=== PATIENT | female | born 1975 | race Caucasian/White ===

== ENCOUNTER 2021-06-13 07:20 | Emergency (ER) | payer OTHER ==
--- NOTE | 2021-06-13 08:03 | ER ---
Nurse's Notes [facility] Name: Malina Duarte Age: 46 yrs Sex: Female : 1975 Arrival Date: 06/13/2021 Time: 07:25 Bed 13 Private MD: Flaquito Jasso Diagnosis: Pain in unspecified knee;Pain in unspecified shoulder Presentation: 06/13 07:27 Chief complaint: Patient states: i have had some problems with my shoulder \T\ my knees tw2 for a while. i went to do my normal workout today and i just cried. pain is worse in the left knee. and right underneath my right collar bone. Coronavirus screen: At this time, the client does not indicate any symptoms associated with coronavirus-19. Ebola Screen: Patient denies travel to an Ebola-affected area in the 21 days before illness onset. Initial Sepsis Screen: Does the patient meet any 2 criteria? No. Patient's initial sepsis screen is negative. Does the patient have a suspected source of infection? No. Patient's initial sepsis screen is negative. Risk Assessment: Do you want to hurt yourself or someone else? Patient reports no desire to harm self or others. Onset of symptoms was June 13, 2021. 07:27 Method Of Arrival: Ambulatory tw2 07:27 Acuity: MONICA 4 tw2 Triage Assessment: 07:32 General: Appears in no apparent distress. obese, well groomed, Behavior is calm, tw2 cooperative, appropriate for age. Pain: Complains of pain in left knee and right shoulder area. Historical: - Allergies: 07:29 Codeine; tw2 07:29 Hydrocodone-Acetaminophen; tw2 - PMHx: 07:29 edema; tw2 - PSHx: 07:29 Appendectomy; section; uterus removed; oophorectomy; hernia; right foot sx; tw2 - Immunization history:: Adult Immunizations Client reports receiving the 2nd dose of the Covid vaccine. - Social history:: Smoking status: Reported history of juuling and/or vaping. Screenin:33 Abuse screen: Denies threats or abuse. Nutritional screening: No deficits noted. tw2 Tuberculosis screening: No symptoms or risk factors identified. Fall Risk None identified. Assessment: 07:43 Pain: Complains of pain in left knee Pain does not radiate. Pain currently is 7 out of aj2 10 on a pain scale. Quality of pain is described as dull, Pain began Is intermittent, Alleviated by nothing. Aggravated by increased activity, repositioning. Vital Signs: 07:27 BP 116 / 71; Pulse 62; Resp 17; Temp 98.2(TE); Pulse Ox 100% on R/A; Weight 83.91 kg tw2 (R); Height 5 ft. 2 in. (157.48 cm) (R); Pain 7/10; 07:39 BP 116 / 71; Pulse 62; Resp 18; Temp 98.2; Pulse Ox 100% ; aj2 07:27 Body Mass Index 33.84 (83.91 kg, 157.48 cm) tw2 ED Course: 07:25 Patient arrived in ED. mr 07:25 Flaquito Jasso MD is Private Physician. mr 07:29 Triage completed. tw2 07:32 Arm band placed on. tw2 07:33 [facility] 07:33 Amauri Sierra MD is Attending Physician. [facility] 07:33 Jennifer Gardner is Primary Nurse. aj2 07:33 Bed in low position. Call light in reach. tw2 07:39 No apparent distress. Resting quietly. aj2 07:39 No provider procedures requiring assistance completed. 2 08:02 Antonio Salazar MD is Referral Physician. [facility] 08:02 Nigel Mota MD is Referral Physician. [facility] Administered Medications: 07:59 Drug: Ketorolac 30 mg Route: IM; Site: left deltoid; 2 Outcome: 08:02 Discharge ordered by . [facility] 08:08 Discharged to home aj2 08:08 Condition: stable 08:08 Discharge instructions given to patient, Instructed on discharge instructions, follow up and referral plans. Demonstrated understanding of instructions, follow-up care, medications, Prescriptions given X 2. 08:09 Patient left the ED. 2 Signatures: Tanner Anders PA PA jmm Rivera, Mary Juani Boone, RN RN tw2 Jennifer Gardner aj2
--- NOTE | 2021-06-13 08:03 | EDPHYS ---
Physician Documentation [facility] Name: Malina Duarte Age: 46 yrs Sex: Female : 1975 Arrival Date: 06/13/2021 Time: 07:25 Bed 13 Private MD: Flaquito Jasso ED Physician Amauri Sierra HPI: 06/13 07:58 This 46 yrs old Female presents to ER via Ambulatory with complaints of Knee jmm Pain, Shoulder Pain. 07:58 The patient presents with pain. Onset: The symptoms/episode began/occurred gradually. jmm Modifying factors: The symptoms are alleviated by nothing. the symptoms are aggravated by weight bearing. Associated signs and symptoms: Pertinent negatives calf tenderness, fever, vomiting, warmth, weakness. This is a 38-year-old female with history of edema the presents emerged part with complaints of bilateral knee pain which began few weeks ago. Patient denies known injury but states she does work out regularly. Symptoms began on both knees during the same day. Symptoms have now moved is which she describes inside the knees bilaterally. Patient denies fever. Patient denies history of rheumatoid arthritis. Patient also complains of right shoulder pain which is exacerbated by movement. Denies known injury for that either.. Historical: - Allergies: 07:29 Codeine; tw2 07:29 Hydrocodone-Acetaminophen; tw2 - PMHx: 07:29 edema; tw2 - PSHx: 07:29 Appendectomy; section; uterus removed; oophorectomy; hernia; right foot sx; tw2 - Immunization history:: Adult Immunizations Client reports receiving the 2nd dose of the Covid vaccine. - Social history:: Smoking status: Reported history of juuling and/or vaping. ROS: 07:58 Constitutional: Negative for fever, chills, and weight loss, Cardiovascular: Negative jmm for chest pain, palpitations, and edema, Respiratory: Negative for shortness of breath, cough, wheezing, and pleuritic chest pain. 07:58 MS/extremity: Positive for pain. 07:58 All other systems are negative. Exam: 07:58 Constitutional: This is a well developed, well nourished patient who is awake, alert, jmm and in no acute distress. Head/Face: atraumatic. Eyes: EOMI, no conjunctival erythema appreciated ENT: Moist Mucus Membranes Neck: Trachea midline, Supple Chest/axilla: Normal chest wall appearance and motion. Cardiovascular: Regular rate and rhythm. No edema appreciated Respiratory: Normal respirations, no respiratory distress appreciated Abdomen/GI: Non distended, soft Back: Normal ROM Skin: General appearance color normal 07:58 Musculoskeletal/extremity: ROM: intact in all extremities. 07:58 Musculoskeletal/extremity: Pain on palpation of the superior surface of the knees bilaterally, full range of motion appreciated bilaterally full dorsalis pedis pulse, compartments are soft. There is some mild right medial anterior shoulder pain on palpation. Full money market clerk strength appreciated, full range of motion appreciated, neurovascular intact. 07:58 Skin: Appearance: Color: normal in color. 07:58 Neuro: Orientation: is normal, Mentation: is normal, Memory: is normal. 07:58 Psych: Behavior/mood is pleasant, cooperative. Vital Signs: 07:27 BP 116 / 71; Pulse 62; Resp 17; Temp 98.2(TE); Pulse Ox 100% on R/A; Weight 83.91 kg tw2 (R); Height 5 ft. 2 in. (157.48 cm) (R); Pain 7/10; 07:39 BP 116 / 71; Pulse 62; Resp 18; Temp 98.2; Pulse Ox 100% ; aj2 07:27 Body Mass Index 33.84 (83.91 kg, 157.48 cm) tw2 MDM: 07:56 Patient medically screened. cata 08:01 Data reviewed: vital signs, nurses notes. Counseling: I had a detailed discussion with hernán the patient and/or guardian regarding: the historical points, exam findings, and any diagnostic results supporting the discharge/admit diagnosis, the need for outpatient follow up, to return to the emergency department if symptoms worsen or persist or if there are any questions or concerns that arise at home. ED course: Patient is alert nontoxic in appearance in the ED. Most likely a systemic cause of pain or pain secondary to strenuous activity. Patient is advised to follow with orthopedics and otherwise given strict return precautions. Patient understood and agrees plan of care.. Administered Medications: 07:59 Drug: Ketorolac 30 mg Route: IM; Site: left deltoid; aj2 Disposition Summary: 06/13/21 08:02 Discharge Ordered Location: Home hernán Condition: Stable jmm Diagnosis - Pain in unspecified knee jmm - Pain in unspecified shoulder jmm Followup: [facility] - With: Antonio Salazar MD - When: 2 - 3 days - Reason: Recheck today's complaints, Continuance of care, Re-evaluation by your physician Followup: [facility] - With: Nigel Mota MD - When: 2 - 3 days - Reason: Recheck today's complaints, Continuance of care, Re-evaluation by your physician Discharge Instructions: - Discharge Summary Sheet jmm - Joint Pain jmm - Musculoskeletal Pain jm Forms: - Medication Reconciliation Form jm - Thank You Letter m - Antibiotic Education jmm - Prescription Opioid Use [facility] Prescriptions: - Medrol (Finesse) 4 mg Oral Tablets, Dose Pack - take 1 tablet by ORAL route as directed - follow package instructions; 1 jmm packet; Refills: 0, Product Selection Permitted - orphenadrine citrate 100 mg Oral Tablet Sustained Release - take 1 tablet by ORAL route 2 times per day As needed; 20 tablet; Refills: 0, [facility] Product Selection Permitted Addendum: 06/14/2021 11:02 Co-signature as Attending Physician, Amauri Sierra MD I agree with the assessment and k dr plan of care. Signatures: Amauri Sierra MD MD kdr Mickail, Joel, PA PA jm Juani Boone RN RN tw2 Jennifer Gardner2
[2021-06-13 08:14] VITALS: BP 116/71; TEMP 98.2; O2SAT 100
[2021-06-13] MEDS ORDERED: KETOROLAC 30 MG/ML INJ ONE (08:21)
== END 2021-06-13 08:09 | disposition home or self-care (01) ==
LOC: ER 07:20
DX: M25.562 Pain in left knee (principal); M25.561 Pain in right knee; M25.511 Pain in right shoulder; Z88.5 Allergy status to narcotic agent
CPT/HCPCS: 96372; 99283